=== PATIENT | female | born 1945 | race Caucasian/White ===

== ENCOUNTER 2017-04-07 09:33 | Outpatient (CLI) | payer MEDICARE | END 2017-04-07 09:34 | disposition home or self-care (01) | LOC: BICMAMMO 09:33 | PROVIDERS: ATTEND Family Medicine | DX: Z12.31 Encounter for screening mammogram for malignant neoplasm of breast (principal) | CPT/HCPCS: 77063; 77067 ==

== ENCOUNTER 2018-04-13 09:00 | Outpatient (CLI) | payer MEDICARE | END 2018-04-13 09:01 | disposition home or self-care (01) | LOC: BICMAMMO 09:00 | PROVIDERS: ATTEND Family Medicine | DX: Z12.31 Encounter for screening mammogram for malignant neoplasm of breast (principal); R92.1 Mammographic calcification found on diagnostic imaging of breast | CPT/HCPCS: 77063; 77067 ==

== ENCOUNTER 2018-08-21 12:19 | Outpatient (CLI) | payer MEDICARE ==
--- NOTE | 2018-08-21 13:54 | MRI ---
Left hip MRI without IV contrast: HISTORY: Left hip pain FINDINGS: Multiplanar, multisequence MRI examination of the left hip is performed. Prominent heterogeneous red marrow reconversion of the pelvis and both hips. Evidence for bilateral gluteus medius and gluteus minimus minimus tendinopathy as well as tendinopath y of the common hamstring tendon insertion region. No evidence for abnormal trochanteric bursal fluid. No evidence for avascular necrosis, fracture, or acute stress injury. There are abnormal signa l changes involving the anterior and superior acetabular labrum with small paralabral cysts evidence for degenerative type labral tears. Minimal bilateral hip joint articular cartilage loss IMPRESSION: Bilateral generalized hip joint space loss and articular cartilage loss. 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 Generalized tendinopathy.
== END 2018-08-21 12:20 | disposition home or self-care (01) ==
LOC: SCSMRI 12:19
PROVIDERS: ATTEND Orthopaedic Surgery
DX: M25.552 Pain in left hip (principal); M24.852 Other specific joint derangements of left hip, not elsewhere classified; M85.68 Other cyst of bone, other site; M25.852 Other specified joint disorders, left hip

== ENCOUNTER 2019-04-19 09:38 | Outpatient (CLI) | payer MEDICARE ==
--- NOTE | 2019-04-19 10:43 | BD ---
BONE DENSITOMETRY USING DEXA: Date: 04/19/2019 HISTORY: Postmenopausal screening for osteoporosis. FINDINGS: Lumbar Spine: BMD (g/cm2) L1 0.775 T-Score: -2.0 Z-Score: 0.0 L2 1.068 T-Score: 0.4 Z-Score: 2.6 L3 1.064 T-Score: -0.2 Z-Score: 2.1 L4 1.085 T-Score: 0.2 Z-Score: 2.6 L1-L4 1.003 T-Score: -0.4 Z-Score: 1.8 Femoral Neck: 0.775 T-Score: -0.7 Z-Score: 1.3 Total Femur: 0.970 T-Score: 0.2 Z-Score: 1.9 IMPRESSION: Normal bone mineral density. POS: OFF
--- NOTE | 2019-04-19 13:50 | MMO ---
Bilateral MAMMO Bilat Screen [facility]. CLINICAL HISTORY: Patient is 74 years old and is seen for screening. The patient has no family history of breast cancer. The patient has no personal history of cancer. The patient has a history of right Cyst Aspiration - benign. VIEWS: The views performed were: bilateral craniocaudal with tomosynthesis and bilateral mediolateral oblique with tomosynthesis. FILMS COMPARED: The present examination has been compared to prior imaging studies performed at [facility] on 04/07/2017 and 04/13/2018, and at [facility] on 03/14/2015 and 03/18/2016. This study has been interpreted with the assistance of computer-aided detection. MAMMOGRAM FINDINGS: There are scattered fibroglandular densities. Benign calcifications are noted bilaterally. There are no suspicious masses, suspicious calcifications, or new areas of architectural distortion. IMPRESSION: THERE IS NO MAMMOGRAPHIC EVIDENCE OF MALIGNANCY. A ROUTINE FOLLOW-UP MAMMOGRAM IN 1 YEAR IS RECOMMENDED. THE RESULTS OF THIS EXAM WERE SENT TO THE PATIENT. ACR BI-RADS Category 2 - Benign finding MAMMOGRAPHY NOTE: 1. A negative mammogram report should not delay a biopsy if a dominant of clinically suspicious mass is present. 2. Approximately 10% to 15% of breast cancers are not detected by mammography. 3. Adenosis and dense breasts may obscure an underlying neoplasm. Reported by: MERE GARCIA MD Electonically Signed: [id number]
== END 2019-04-19 09:39 | disposition home or self-care (01) ==
LOC: BICMAMMO 09:38
PROVIDERS: ATTEND Family Medicine
DX: Z12.31 Encounter for screening mammogram for malignant neoplasm of breast (principal); Z13.820 Encounter for screening for osteoporosis; Z78.0 Asymptomatic menopausal state
CPT/HCPCS: 77063; 77067; 77080

== ENCOUNTER 2020-04-24 09:12 | Outpatient (CLI) | payer MEDICARE | END 2020-04-24 09:13 | disposition home or self-care (01) | LOC: BICMAMMO 09:12 | PROVIDERS: ATTEND Family Medicine | DX: Z12.31 Encounter for screening mammogram for malignant neoplasm of breast (principal) | CPT/HCPCS: 77063; 77067 ==

== ENCOUNTER 2020-05-29 07:53 | Outpatient (CLI) | payer MEDICARE | END 2020-05-29 07:54 | disposition home or self-care (01) | LOC: TBSIIMAG 07:53 | PROVIDERS: ATTEND Orthopaedic Surgery Sports Medicine | DX: M23.92 Unspecified internal derangement of left knee (principal); M17.12 Unilateral primary osteoarthritis, left knee ==